=== PATIENT | female | born 1990 | race Caucasian/White ===

== ENCOUNTER 2021-03-16 14:51 | Outpatient (REF) | payer MEDICAID, SELFPAY ==
[2021-03-18 16:05] LABS: COVID-19 RT-PCR UVMMC Result Positive (Negative)
== END 2021-03-16 14:52 | disposition home or self-care (01) ==
LOC: NCHCN 14:51
PROVIDERS: PCP Nurse Practitioner Family; Visit Provider Nurse Practitioner Family
DX: Z20.822 Contact with and (suspected) exposure to COVID-19 (principal)
CPT/HCPCS: U0003

== ENCOUNTER 2024-05-16 15:06 | Emergency (ER) | payer MEDICAID, SELFPAY ==
[2024-05-16 15:15] VITALS: BP 113/74; PULSE 74; RESP 16; TEMP 36.7; O2SAT 98
[2024-05-16 15:25] VITALS: BP 113/74; PULSE 74; RESP 16; TEMP 36.7; O2SAT 98
[2024-05-16] MEDS: Dexamethasone 4 MG TAB 10 MG PO (15:35)
--- NOTE | 2024-05-16 15:39 | W.ED.GENAD ---
Discharge Plan Disposition Patient Disposition: Home Condition: Stable Discharge Details Chief Complaint: Sorethroat Clinical Impression: Pharyngitis Primary Care Provider: Belem Muro ED Provider: Cesar Rai Home Meds and New Rx's Prescriptions: No Action No Known Home Meds Discharge Instructions Additional Instructions: Your strep test was negative, you likely have a virus is causing her symptoms. You can take 600 mg of ibuprofen and 1000 mg of acetaminophen every 6 hours as needed. If not improving this week follow-up with either your primary care provider or express care If you feel more ill or have severe worsening pain or inability to swallow liquids return to the emergency department for reevaluation. HPI General Mode of arrival: ambulatory. Date/Time Provider Initiated Documentation: 05/16/24 15:07. Limitations to Documentation: no limitations. Information obtained by: patient. History of Present Illness 34 year old F presents to the emergency department with the chief complaint of sore throat, described as moderate, Quality is described as aching, and is localized to the mouth (throat). Patient reports no radiation. Patient started experiencing this day(s) (1) and it has been constant. No relieving factors improve symptom(s), No exacerbating factors reported . Patient notes denies cough, fever/chills and nausea/vomiting. Patient did receive the following treatments prior to arrival, none Related Data Home Medications ?Medication ?Instructions ?Recorded ?Confirmed Unknown [No Known Home Meds] 05/16/24 05/16/24 Allergies Allergy/AdvReac Type Severity Reaction Status Date / Time No Known Allergies Allergy Unverified 05/16/24 15:17 General Stated Complaint: Sorethroat KLAUDIA: 4 Review of Systems All systems reviewed & are unremarkable except as noted in HPI and below Constitutional Constitutional: Denies fever(s) and Denies weakness ENT Ears, Nose, Mouth, and Throat: Denies change in voice and Reports sore throat Cardiovascular Cardiovascular: Denies chest pain and Denies dyspnea Respiratory Respiratory: Denies cough and Denies dyspnea Gastrointestinal Gastrointestinal: Denies abdominal pain, Denies nausea and Denies vomiting Integumentary/Breasts Skin/Breast: Denies rash Neurologic Neurologic: Denies weakness Endocrine Endocrine: Denies cold intolerance and Denies heat intolerance Exam Const General: no acute distress Orientation: alert HENMT Head: normal to inspection Ears: external ears normal General nose exam: external nose normal Mouth: moist mucous membranes Throat: posterior oropharynx abnormal and uvula midline Eyes General: appearance normal, both eyes and all related structures Neck Neck: normal visual inspection Resp Effort & Inspection: normal respiratory effort and able to speak in complete sentences Cardio Rate: regular rate Skin General skin exam: no rashes or lesions noted Neuro General: patient alert and patient oriented x3 Extrem General: normal to inspection Psych Mental Status: mental status grossly normal Course Vital Signs Vital signs: Vital Signs Temperature 36.7 C 05/16/24 15:15 Pulse 74 05/16/24 15:15 Respiratory Rate 16 05/16/24 15:15 Blood Pressure 113/74 05/16/24 15:15 Pulse Oximetry 98 05/16/24 15:15 Temperature 36.7 C 05/16/24 15:25 Temperature Source Oral 05/16/24 15:25 Pulse 74 05/16/24 15:25 Respiratory Rate 16 05/16/24 15:25 Respiratory Effort Normal, Non-Labored 05/16/24 15:18 Blood Pressure 113/74 05/16/24 15:25 Blood Pressure Position Sitting 05/16/24 15:25 Pulse Oximetry 98 05/16/24 15:25 Oxygen Delivery Method Room Air 05/16/24 15:25 Oxygen Flow Rate 0 05/16/24 15:25 Lab/Test Results Lab/Test Results: 05/16/24 15:25 Pharynx Group A Streptococcus Culture - Pending POC Strep Test-[place](Rapid) Start: 05/16/24 15:18 Freq: .Rapid Strep Test Status: Active Protocol: Document 05/16/24 15:36 (Rec: 05/16/24 15:36 [id number]) Strep test-[place](Rapid)-POC POC-Strep test-[place] (Rapid) Negative POC-Strep test-[place] (Rapid) Negative Medical Decision Making 34-year-old female comes in with 1 day of sore throat. She denies any changes in voice, difficulty breathing, swallowing liquids normally, states that hurts when she swallows solid food. Denies any fevers. She is well-appearing on exam. She has no drooling or stridor. Her posterior pharynx is mildly erythematous, there is no exudates, uvula is midline, no pain over the hyoid or submandibular swelling. Suspect viral pharyngitis, will check a [id number] flu and COVID and also strep test. She has no findings on exam or history to suggest retropharyngeal abscess, epiglottitis or peritonsillar abscess. COVID and flu negative as well as strep test. She is stable. I suspect viral pharyngitis, do not feel any other further testing or interventions indicated. She will take ibuprofen and Tylenol as needed. She will follow-up with her PCP or express care if she is not improving and return precautions given Differential Diagnosis Differential Diagnosis: COVID, strep, flu Quality:SDOH Health Related Social Needs: No Data to Display [facility] All Active Problems (Updated 05/16/24 @ 16:01 by Cesar Rai MD) Pharyngitis (Acute) Social History Smoking/Tobacco Use Status: Current every day Tobacco Type: cigarettes Smoking risk assessment performed?: Yes Alcohol Intake: current Alcohol Intake frequency: a few times a week Drug use: Daily Substance use type: marijuana Do you feel safe at home: Yes Do you feel safe in your relationship?: Yes PAWSS Have you Been Recently Intoxicated or Drunk Within the Last 30 days?: No Have you Ever Experienced Previous Episodes of Alcohol Withdrawal?: No Have you ever Experienced Withdrawal Seizures?: No Have you ever Experienced Delirium Tremens(DT)s?: No Have you ever undergone Alcohol Rehabilitation Treatment (i.e, inpt ot outpatient treatment programs)?: No Have you ever Experienced Blackouts?: No Have you ever Combined Alcohol with other Downers within the last 90 days?: No Have you ever Combined Alcohol with any other Substance of Abuse during the last 90 days?: No Positive Blood Alcohol level on Presentation? [PCS.BAL]: No Evidence of Increased Autonomic Activity (i.e. HR>120, tremor, sweating, agitation, nausea)?: No Result: 0
--- NOTE | 2024-05-18 12:30 | NUR.NOTE ---
Accessed pt chart to see if Antibiotics were prescribed. They were not and specimen report was put on the clipboard in the Dr office
--- NOTE | 2024-05-18 14:28 | W.ED.FU ---
Date of service: 05/18/24 Time of Service: 14:28 Follow Up Plan: Patient's strep culture came back growing group A, I called and spoke with the patient, she still having symptoms, is following liquids normally. No stridor on the phone. I sent a prescription to her pharmacy of amoxicillin. Advised to follow-up with her PCP if she is not improving and return precautions given.
== END 2024-05-16 16:31 | disposition home or self-care (01) ==
PROVIDERS: Emergency Provider Emergency Medicine; PCP Nurse Practitioner Family
DX: F17.200 Nicotine dependence, unspecified, uncomplicated; J02.0 Streptococcal pharyngitis
CPT/HCPCS: 87880; 99283; 87081; J8540